=== PATIENT | female | born 1930 | race Two or more races ===

== ENCOUNTER 2016-07-30 18:30 | Inpatient (IN) | payer OTHER ==
[~2016-07-30] VITALS: Ht 160 cm; Wt 86.2 kg
[2016-07-30 20:30] VITALS: BP 143/73
--- NOTE | 2016-07-30 20:30 | NUR ---
MS RN NOTES RECEIVED PT FROM [facility] WITH 2 CREWS. TRANSFERRED TO BED SAFELY. PT IS A/O X 4. VERBALLY RESPONSIVE. NO DISTRESS, NO SOB NOTED. RESPIRATION IS EVEN AND UNLABORED. DENIES ANY PAIN OR DISCOMFORT AT THIS TIME. BODY ASSESSMENT DONE. ALL NEEDS ATTENDED AND MET. KEPT COMFORTABLE. CALL LIGHT WITHIN REACH. SAFETY PRECAUTIONS OBSERVED. WILL CONT TO MONITOR.
--- NOTE | 2016-07-30 20:45 | NUR ---
PT IS STABLE AT THIS TIME, FAMILY AT BEDSIDE. SAFETY PRECAUTIONS OBSERVED. CALL LIGHT WITHIN REACH. WILL CONT TO MONITOR.
--- NOTE | 2016-07-30 21:00 | NUR ---
PLACED A CALL TO [facility] REGARDING MEDICATION LIST. MEDICATION LIST NOT INCLUDED IN THE PAPER WORKS THAT WAS SENT WITH THE PT, SPOKE WITH MAY, PER MAY WILFREDO LEFT ALREADY AND SHE DIDN'T HAVE ACCESS TO THE PT'S MEDICATIONS, BUT WE CAN FAX A CONSENT FROM PT THAT STATING THAT WE CAN ACCESS PT'S INFORMATION. PLACED A CALL TO PATIENT'S FAMILY INSTEAD AND PATIENT'S SON SENT PATIENT'S MEDICATION, DR. ARMANDO NEW AWARE.
--- NOTE | 2016-07-30 21:30 | NUR ---
INSERTED IV ON LEFT HAND 20G X 1 ATTEMPT. WITH GOOD VENOUS RETURN. PT RANDY WELL.
[2016-07-30] MEDS ORDERED: HYDROCODONE/APAP 5/325MG 1 EACH TABLET PO PRN (23:30)
[2016-07-30] MEDS ORDERED: Z GUARD REMEDY 2 OZ OINT TP PRN (23:30)
[2016-07-30] MEDS ORDERED: ZOLPIDEM TARTRATE 5 MG TABLET PO PRN (23:30)
[2016-07-30] MEDS ORDERED: ONDANSETRON HCL/PF 4 MG/2 ML VIAL IVP PRN (23:30)
[2016-07-30] MEDS ORDERED: MAGNESIUM HYDROXIDE 30 ML UDC PO PRN (23:30)
[2016-07-30] MEDS ORDERED: MAG HYDROX/AL HYDROX/SIMETH 30 ML UDC PO PRN (23:30)
[2016-07-30] MEDS ORDERED: ACETAMINOPHEN 325 MG TABLET PO PRN (23:30)
[2016-07-31] MEDS ORDERED: IV SET PRIMARY PUMP SET 1 EA INFUS.SET MC ONE (00:10)
[2016-07-31] MEDS ORDERED: IV 1/2NS 1000 ML 1,000 ML IV ONE (00:10)
[2016-07-31] MEDS: IV 1/2NS 1000 ML 1,000 ML IV PRN ×2 (00:43→15:52)
[2016-07-31] MEDS ORDERED: MORPHINE SULFATE INJ 2 MG/ML DISP.SYRIN ONE (01:52)
[2016-07-31] MEDS: MORPHINE SULFATE INJ 2 MG/ML DISP.SYRIN IV PRN ×4 (02:02→21:08)
[2016-07-31 07:01] LABS: BASOPHILS % (AUTO) 0.6 % (0.0-2.0); EOSINOPHILS # (AUTO) 0.2 /CMM (0.0-0.7); EOSINOPHILS % (AUTO) 3.8 % (0.0-6.0); HEMATOCRIT 32 % (33-45); HEMOGLOBIN 10.9 g/dL (11.5-14.8); LYMPHOCYTES # (AUTO) 1.5 /CMM (0.8-4.8); LYMPHOCYTES % (AUTO) 24.1 % (20.0-44.0); MEAN CORPUSCULAR HEMOGLOBIN 31 PG (26.0-33.0); MEAN CORPUSCULAR HGB CONC 34 g/dl (31.0-36.0); MEAN CORPUSCULAR VOLUME 91 fL (82-100); MONOCYTES # (AUTO) 0.6 /CMM (0.1-1.30); MONOCYTES % (AUTO) 9.1 % (2.0-12.0); NEUTROPHILS # (AUTO) 3.9 /CMM (1.8-8.9); NEUTROPHILS % (AUTO) 62.4 % (43.0-81.0); PLATELET COUNT (AUTO) 203 /CMM (150-450); RDW COEFFICIENT OF VARIATION 14.4 (11.5-15.0); RED BLOOD CELL COUNT(AUTO) 3.47 MIL/uL (4.0-5.2); WHITE BLOOD COUNT (AUTO) 6.2 K/uL (4.3-11.0)
--- NOTE | 2016-07-31 07:20 | NUR ---
MED RECON NURSE INPUT PATIENT'S HOME MEDS, ENDORSED TO JOVANA.
[2016-07-31] MEDS: PANTOPRAZOLE 40 MG TABLET.DR PO SCH (07:30)
--- NOTE | 2016-07-31 07:30 | NUR ---
AM RN NOTE Received patient sleeping comfortably in her bed, no acute distress noted. No SOB noted resp even and non-labored. IV site intact and patent. Bed in low locked position. Will continue to monitor.
--- NOTE | 2016-07-31 07:30 | NUR ---
MS RN NOTES PT STABLE AT THIS TIME. NO DISTRESS, NO SOB NOTED. RESTING COMFORTABLY AT THIS TIME.A/O X4. NO C/O PAIN OR DISCOMFORT AT THIS TIME. IV SITE ON LEFT HAND INTACT AND PATENT. IVF INFUSING WELL. SAFETY PRECAUTIONS OBSERVED. ALL NEEDS ATTENDED. CALL LIGHT WITHIN REACH. SAFETY PRECAUTIONS OBSERVED. WILL ENDORSE TO NEXT SHIFT FOR OMARI.
[2016-07-31 07:31] LABS: CARBON DIOXIDE 29 mmol/L (21-32); CHLORIDE 102 mmol/L (98-107); CREATININE 0.7 mg/dL (0.6-1.3); GLUCOSE 92 mg/dL (74-106); PHOSPHORUS 3.4 mg/dL (2.5-4.9); POTASSIUM 4.2 mmol/L (3.5-5.1); SODIUM SERUM 137 mmol/L (136-145); UREA NITROGEN, BLOOD 12 mg/dL (7-18)
[2016-07-31] MEDS ORDERED: ATEN25TA PO (07:37)
[2016-07-31] MEDS ORDERED: ATOR10TA PO (07:37)
[2016-07-31] MEDS ORDERED: ALEN70TA45 PO (07:37)
[2016-07-31] MEDS ORDERED: CARB-93 PO (07:37)
[2016-07-31] MEDS ORDERED: CALC1CAP21 PO (07:37)
[2016-07-31] MEDS ORDERED: LEVO112T2 PO (07:37)
[2016-07-31] MEDS ORDERED: CITA20TA19 PO (07:37)
[2016-07-31] MEDS ORDERED: HYDR-3326 PO (07:37)
[2016-07-31] MEDS ORDERED: ACET-868 PO (07:37)
[2016-07-31] MEDS ORDERED: CHOL100044 PO (07:37)
[2016-07-31 08:07] VITALS: BP 159/78
[2016-07-31] MEDS ORDERED: HYDROCODONE/APAP 5/325MG 1 EACH TABLET PO PRN (11:00)
[2016-07-31] MEDS ORDERED: ACETAMINOPHEN 325 MG TABLET PO PRN (11:00)
[2016-07-31] MEDS: CARBIDOPA/LEVODOPA 25/100 MG 1 UDTAB PO SCH ×2 (12:52→16:01)
[2016-07-31 16:01] VITALS: BP 131/68
[2016-07-31] MEDS: CALCIUM CARB 600MG /VIT D 1 EACH TABLET PO SCH (16:01)
--- NOTE | 2016-07-31 18:43 | NUR ---
AM RN NOTE Patient lying in her bed and watching TV. NO acute distress noted. Seen and assessed by Cesar (Ortho) this evening with NNO. All needs met and attended in timely manner. Will endorse care to next shift.
--- NOTE | 2016-07-31 19:30 | NUR ---
MS RN NOTES RECEIVED PT IN BED, AWAKE, A/O X 4. PT STABLE AT THIS TIME. NO DISTRESS, NO SOB NOTED. NO C/O PAIN OR DISCOMFORT AT THIS TIME. IV SITE ON LEFT HAND INTACT AND PATENT. IVF INFUSING WELL. SAFETY PRECAUTIONS OBSERVED. ALL NEEDS ATTENDED. CALL LIGHT WITHIN REACH. WILL CONTINUE TO MONITOR.
[2016-07-31 20:00] VITALS: BP 125/52
[2016-07-31] MEDS: ATORVASTATIN 10 MG TABLET PO SCH (21:04)
[2016-07-31 22:00] VITALS: BP 125/52
[2016-08-01] MEDS: MORPHINE SULFATE INJ 2 MG/ML DISP.SYRIN IV PRN ×3 (06:05→20:14)
--- NOTE | 2016-08-01 06:54 | NUR ---
MS RN NOTES PT IN BED, RESTING COMFORTABLY AT THIS TIME AROUSES EASILY. A/O X 4. PT STABLE AT THIS TIME. NO DISTRESS, NO SOB NOTED. NO C/O PAIN OR DISCOMFORT AT THIS TIME. IV SITE ON LEFT HAND INTACT AND PATENT. IVF INFUSING WELL. SAFETY PRECAUTIONS OBSERVED. ALL NEEDS ATTENDED. CALL LIGHT WITHIN REACH. WILL ENDORSE TO NEXT SHIFT FOR OMARI.
[2016-08-01] MEDS ORDERED: LEVOTHYROXINE SODIUM 112 MCG TABLET PO SCH (07:30)
[2016-08-01] MEDS: PANTOPRAZOLE 40 MG TABLET.DR PO SCH (07:59)
[2016-08-01 08:00] VITALS: BP 142/89
[2016-08-01] MEDS: CARBIDOPA/LEVODOPA 25/100 MG 1 UDTAB PO SCH ×3 (08:00→16:29)
[2016-08-01] MEDS: CALCIUM CARB 600MG /VIT D 1 EACH TABLET PO SCH ×2 (08:00→16:29)
[2016-08-01] MEDS ORDERED: ATORVASTATIN 10 MG TABLET PO SCH (09:00)
[2016-08-01] MEDS ORDERED: ATENOLOL 25 MG TABLET PO SCH (09:00)
[2016-08-01] MEDS ORDERED: CHOLECALCIFEROL 1,000 UNIT TABLET (VIT D3) PO SCH (09:00)
[2016-08-01] MEDS ORDERED: CITALOPRAM HYDROBROMIDE 20 MG TABLET PO SCH (09:00)
[2016-08-01] MEDS ORDERED: Morphine Sulfate Inj IV (09:48)
[2016-08-01 16:00] VITALS: BP 131/73
--- NOTE | 2016-08-01 18:30 | NUR ---
AM RN NOTE Pt awake, A/O X3. No acute distress noted. Discharge order given by Dr. Ortega. Received call from Lis ROSARIO) that pt will be going to [facility]. P/U time @ 7:30 PM via ambulance. Called Son (Ching) made aware. Called [facility] spoke with Fe CLERICAL RECEPTIONIST report given on pt. Discharge instructions on medications and teaching given to pt and verbalize understanding. Skin pictures taken and placed in chart. Will endorse to next shift.
--- NOTE | 2016-08-01 18:45 | NUR ---
AM RN NOTE Fe FILAMENT COIL WINDER made aware for F/U appt with Dr. Adams in 1-2 weeks. #[phone].
--- NOTE | 2016-08-01 19:15 | NUR ---
MS RN NOTES RECEIVED PT IN BED, WATCHING TV T THIS TIME. AT BEDSIDE. PT IS A/O X 4. NO DISTRESS, NO SOB NOTED. DENIES ANY PAIN OR DISCOMFORT AT THIS TIME. IV SITE ON LEFT HAND INTACT AND PATENT, NO S/S OF INFILTRATION NOTED. PT FOR DISCHARGE TONIGHT AWAITING FOR TRANSPORTATION. ALL NEEDS ATTENDED AND ET. KEPT COMFORTABLE. CALL LIGHT WITHIN REACH. WILL CONT TO MONITOR.
[2016-08-01 20:00] VITALS: BP 136/67
[2016-08-01] MEDS: ATORVASTATIN 10 MG TABLET PO SCH (21:14)
--- NOTE | 2016-08-01 21:45 | NUR ---
PT IS STABLE AT THIS TIME, NO DISTRESS, NO C/O PAIN OR DISCOMFORT AT THIS TIME. REMAINS A/O X 4. VERBALLY RESPONSIVE. BODY CHECK AND EXIT CARE DONE BY DAY SHIFT RN. ALL DUE MEDICATIONS GIVEN. ALL NEEDS ATTENDED AND MET. IV N LEFT HAND REMOVED, PRESSURE APPLIED, NO BLEEDING AT THIS TIME. ALL BELONGINGS WITH THE PT AND . PICKED UP BY [facility] ( 2 CREWS ) TRANSFERRED PT FROM BED TO [facility] SAFELY. ENDORSED TO [facility] CREW ACCORDINGLY.
[2016-08-04] MEDS ORDERED: ALENDRONATE 70 MG TABLET PO SCH (07:30)
== END 2016-08-01 21:50 | DRG 544 ==
LOC: MEDSG2 20:11
PROVIDERS: ADMIT Internal Medicine; ATTEND Internal Medicine
DX: M80.852A Other osteoporosis with current pathological fracture, left femur, initial encounter for fracture (principal); M48.54XA Collapsed vertebra, not elsewhere classified, thoracic region, initial encounter for fracture; G20 Parkinson's disease; E78.5 Hyperlipidemia, unspecified; E03.9 Hypothyroidism, unspecified; I10 Essential (primary) hypertension; W01.0XXA Fall on same level from slipping, tripping and stumbling without subsequent striking against object, initial encounter; Y93.9 Activity, unspecified; Y92.003 Bedroom of unspecified non-institutional (private) residence as the place of occurrence of the external cause
CPT/HCPCS: 36415; 71010-TC; 80048-TC; 83735-TC; 84100-TC; 85025-TC; 87081-TC; 97001-TC; 97116-TC; 97530-TC; J2270; J3490; Z7610

== ENCOUNTER 2018-12-23 14:02 | Inpatient (IN) | payer MEDICARE, OTHER ==
[~2018-12-23] VITALS: Ht 157.5 cm; Wt 85.7 kg
--- NOTE | 2018-12-23 13:00 | NUR ---
RN NOTES RECEIVED REPORT FROM STEPHANIE COLBERT FROM [facility].
[~2018-12-23 14:02] MED LIST: ACET-868 PO; ALEN70TA6 PO; ATEN25TA PO; ATOR10TA PO; CALC1CAP21 PO; CARB-93 PO; CHOL100044 PO; CITA20TA19 PO; HYDR-3974 PO; LEVO112T2 PO; Morphine Sulfate Inj IV
--- NOTE | 2018-12-23 15:45 | NUR ---
RN ADMITTING NOTES ADMITTED 88 Y/O, FEMALE TO UNIT VIA GURNEY ACCOMPANIED BY AMBULANCE STAFF. A/O X 4. ABLE TO MAKE NEEDS KNOWN. PATIENT ORIENTED TO UNIT, ROOM AND STAFF. ON RA, BREATHING EVEN AND UNLABORED. V/S TAKEN AND RECORDED. REFUSED PHYSICAL ASSESSMENT. ABDOMEN SOFT, NON-DISTENDED WITH POSITIVE BOWEL SOUNDS ON FOUR QUADRANTS. IV ACCESS ON LAC#20, PATENT AND INTACT. IVF TO BE STARTED. SAFETY MEASURES INITIATED, BED PLACED IN LOWEST LOCKED POSITION WITH SIDE RAILS UPX2. CALL LIGHT PLACED WITHIN EASY REACH OF PATIENT. WILL CONTINUE TO MONITOR.
[2018-12-23 16:00] VITALS: BP 117/65
[2018-12-23] MEDS ORDERED: CALC600T12 PO (16:13)
[2018-12-23] MEDS ORDERED: CYAN-51 PO (16:13)
[2018-12-23] MEDS ORDERED: AMAN100T PO (16:13)
[2018-12-23] MEDS ORDERED: LEVO112T2 PO (16:13)
[2018-12-23] MEDS ORDERED: MELA1TAB2 PO (16:13)
[2018-12-23] MEDS ORDERED: ENTA200T PO (16:13)
[2018-12-23] MEDS ORDERED: MAGN400T8 PO (16:13)
[2018-12-23] MEDS ORDERED: ZOLPIDEM TARTRATE 5 MG TABLET PO PRN (16:30)
[2018-12-23] MEDS ORDERED: MAGNESIUM HYDROXIDE 30 ML UDC PO PRN (16:30)
[2018-12-23] MEDS ORDERED: ONDANSETRON HCL/PF 4 MG/2 ML VIAL IVP PRN (16:30)
[2018-12-23] MEDS ORDERED: MORPHINE SULFATE INJ 2 MG/ML DISP.SYRIN IV PRN (16:30)
[2018-12-23] MEDS ORDERED: HYDROCODONE/APAP 5/325MG 1 EACH TABLET PO PRN (16:30)
[2018-12-23] MEDS ORDERED: Z GUARD REMEDY 2 OZ OINT TP PRN (16:30)
[2018-12-23] MEDS ORDERED: HYDROCODONE/APAP 10/325MG 1 EA TABLET PO PRN (16:30)
[2018-12-23] MEDS ORDERED: MAG HYDROX/AL HYDROX/SIMETH 30 ML UDC PO PRN (16:30)
[2018-12-23] MEDS: IV NS 0.9% 1,000 ML IV PRN (16:46)
[2018-12-23] MEDS: ENOXAPARIN SODIUM 40 MG/0.4 ML DISP.SYRIN SQ SCH (17:10)
[2018-12-23] MEDS ORDERED: ESCI5TAB PO (17:18)
--- NOTE | 2018-12-23 18:30 | NUR ---
MS RN CLOSING NOTES PATIENT IN BED RESTING COMFORTABLY IN MODERATE HIGH BACK REST. A/O X4. FAMILY AT BEDSIDE. ON RA, TOLERATING WELL. NO SIGNS OF DISTRESS THROUGHOUT THE SHIFT. IV FLUIDS ON LAC#20 WITH NS @75ML/HR. PATENT AND INTACT. SAFETY PRECAUTION IN PLACE, BED IN LOW LOCKED POSITION WITH SIDE RAILS UP X2. CALL LIGHT WITHIN REACH. WILL ENDORSE TO AEROBICS INSTRUCTOR NURSE FOR OMARI.
--- NOTE | 2018-12-23 19:10 | NUR ---
MS RN NOTES RECEIVED PT IN BED AWAKE AND ABLE TO MAKE NEEDS KNOWN. PT A/O X3. RESPIRATIONS EVEN AND UNLABORED WITH NO S/S OF ACUTE DISTRESS OR SOB NOTED. NO COMPLAINTS OF PAIN AT THIS TIME. PT WITH IV ON LAC #20G PATENT AND INTACT INFUSING NS @75ML/HR. SAFETY MEASURES IN PLACE WITH BED IN LOWEST LOCKED POSITION WITH SIDE RAILS UP X2. CALL LIGHT WITHIN REACH. WILL CONTINUE TO MONITOR.
--- NOTE | 2018-12-23 19:50 | NUR ---
PT ADVISED SHE IS TIRED AND WANTS THE ECHO AND CAROTID EXAMS DONE TOMORROW.
[2018-12-23 20:47] VITALS: BP 118/69
[2018-12-24] VITALS: BP 119/73
[2018-12-24 04:00] VITALS: BP 121/66
[2018-12-24] MEDS: IV NS 0.9% 1,000 ML IV PRN ×2 (06:30→20:41)
[2018-12-24 07:07] LABS: BASOPHILS % (AUTO) 0.6 % (0.0-2.0); EOSINOPHILS % (AUTO) 2.9 % (0.0-6.0); HEMATOCRIT 34 % (33-45); HEMOGLOBIN 11.6 g/dL (11.5-14.8); LYMPHOCYTES # (AUTO) 1.3 /CMM (0.8-4.8); LYMPHOCYTES % (AUTO) 21.3 % (20.0-44.0); MEAN CORPUSCULAR HGB CONC 34 g/dl (31.0-36.0); MEAN CORPUSCULAR VOLUME 96 fL (82-100); MONOCYTES # (AUTO) 0.7 /CMM (0.1-1.30); NEUTROPHILS % (AUTO) 64.2 % (43.0-81.0); PLATELET COUNT (AUTO) 150 /CMM (150-450); RED BLOOD CELL COUNT(AUTO) 3.57 MIL/uL (4.0-5.2); WHITE BLOOD COUNT (AUTO) 6.3 K/uL (4.3-11.0)
--- NOTE | 2018-12-24 07:10 | NUR ---
FAMILY ADVOCATE NOTES PATIENT IN BED ALERT ORIENTED X 3. NO ACUTE DISTRESS NOTED. BREATHING UNLABORED. NO SOB NOTED. IV ACCESS PATENT AND INTACT ,NO REDNESS, NO SWELLING NOTED. RIGHT SHOULDER SLING IN PLACE. SAFETY MEASURES IN PLACE. CALL LIGHT WITHIN REACH. WILL CONTINUE TO MONITOR ACCORDINGLY
[2018-12-24 07:18] LABS: THYROID STIMULATING HORMONE 2.749 uIU/mL (0.358-3.74)
[2018-12-24 07:21] LABS: CALCIUM, SERUM 8.3 mg/dL (8.5-10.1); CREATININE 0.9 mg/dL (0.6-1.3); PHOSPHORUS 3.1 mg/dL (2.5-4.9); POTASSIUM 4.2 mmol/L (3.5-5.1)
--- NOTE | 2018-12-24 07:44 | NUR ---
MORTISING MACHINE OPERATOR NOTES PT IN BED AWAKE AND ABLE TO MAKE NEEDS KNOWN. PT A/O X3. RESPIRATIONS EVEN AND UNLABORED WITH NO S/S OF ACUTE DISTRESS OR SOB NOTED THROUGHOUT SHIFT. PT KEPT CLEAN, DRY AND COMFORTABLE. PT TURNED Q2 HOURS THROUGHOUT SHIFT. NO COMPLAINTS OF PAIN AT THIS TIME. PT WITH IV ON LAC #20G PATENT AND INTACT INFUSING NS @75ML/HR. SAFETY MEASURES IN PLACE WITH BED IN LOWEST LOCKED POSITION WITH SIDE RAILS UP X2. CALL LIGHT WITHIN REACH. WILL ENDORSE TO ONCOMING NURSE FOR OMARI.
[2018-12-24 08:00] VITALS: BP 156/89
--- NOTE | 2018-12-24 09:00 | NUR ---
CREAM BUYER NOTES NOTIFIED DR DAVIS REGARDING HOME MEDICATION RECONCILIATION NEEDS TO BE DONE.
[2018-12-24] MEDS: ACETAMINOPHEN 325 MG TABLET PO PRN ×2 (11:16→18:07)
[2018-12-24 12:00] VITALS: BP 111/64
--- NOTE | 2018-12-24 15:10 | NUR ---
BACK CLOSER NOTES FOLLOWED UP WITH DR BENJAMIN ALSTON REGARDING HOME MEDICATION RECONCILIATION NEEDS TO BE DONE.
[2018-12-24 16:00] VITALS: BP 116/73
--- NOTE | 2018-12-24 18:13 | NUR ---
NEEDLE BAR MOLDER NOTES FOLLOWED UP WITH DR BENJAMIN ALSTON REGARDING HOME MEDICATION RECONCILIATION NEEDS TO BE DONE, SAID OK HE WILL DO IT.
--- NOTE | 2018-12-24 18:52 | NUR ---
Met with patient and sposue at bedside. Patient lives locally with her spouse in a single level home. She has hx of parkinson ds,ambulates with a walker prior to admission and independent with adl's. She owns a cane, walker and shower chair, no homehealth reported. PT yue recommended ARU, discussed with patient and spouse, both agreed ARU at [facility]. Per Steve at [facility]- patient is accepted room#105. Addendum: 12/24/18 at 1852 by EMILY TIJERINA RN Amended: Links added.
--- NOTE | 2018-12-24 19:00 | NUR ---
MARKETING ADMINISTRATOR NOTES PATIENT IN BED ALERT ORIENTED X 3. NO ACUTE DISTRESS NOTED. BREATHING UNLABORED. NO SOB NOTED. IV ACCESS PATENT AND INTACT ,NO REDNESS, NO SWELLING NOTED. RIGHT SHOULDER SLING IN PLACE. PATIENT REFUSED BODY ASSESSMENT AND PHOTO TAKEN DESPITE OF EXPLANATION OF RISK AND BENEFITS.NEEDS ATTENDED AND ANTICIPATED. SAFETY MEASURES IN PLACE. CALL LIGHT WITHIN REACH. WILL ENDORSE TO NIGHT NURSE FOR CONTINUITY OF CARE.
--- NOTE | 2018-12-24 19:28 | NUR ---
RN OPEN NOTES RECEIVED PATIENT AWAKE IN BED. A/OX3. NO SIGNS OF DISTRESS OR DISCOMFORT. BREATHING EVEN AND UNLABORED. ON TELE MONITORING WITH SR 87 NOTED. IV ACCESS IN LAC WITH NS INFUSING, PATENT AND INTACT, NO SIGNS OF REDNESS OR INFILTRATION. PATIENT HAS SLING ON R ARM IN PLACE. STATES PAIN IS 3/10 AND TOLERABLE AT THIS TIME. PATIENT REFUSED TO HAVE PHOTOS TAKEN OF SKIN ASSESSMENT, RISK AND BENEFITS EXPLAINED. BED IN LOW LOCKED POSITION WITH SIDE RAILS X2. CALL LIGHT WITHIN REACH. WILL CONTINUE TO MONITOR.
[2018-12-24 20:00] VITALS: BP 141/73
[2018-12-24] MEDS: ENOXAPARIN SODIUM 40 MG/0.4 ML DISP.SYRIN SQ SCH (20:15)
[2018-12-25 00:09] VITALS: BP 118/70
[2018-12-25] MEDS: ACETAMINOPHEN 325 MG TABLET PO PRN ×2 (02:12→12:48)
[2018-12-25 04:00] VITALS: BP 120/73
[2018-12-25 04:32] VITALS: BP 120/76
--- NOTE | 2018-12-25 06:28 | NUR ---
RN CLOSING NOTES PATIENT RESTING IN BED, EASILY AROUSABLE. A/OX3. NO SIGNS OF DISTRESS OR DISCOMFORT. BREATHING EVEN AND UNLABORED. ON TELE MONITORING WITH SR 83 NOTED. IV ACCESS IN LAC WITH NS INFUSING, PATENT AND INTACT, NO SIGNS OF REDNESS OR INFILTRATION. PATIENT HAS SLING ON R ARM IN PLACE. STATES PAIN TOLERABLE AT THIS TIME. ALL NEEDS MET. NO SIGNIFICANT CHANGES THROUGH THE NIGHT. BED IN LOW LOCKED POSITION WITH SIDE RAILS X2. CALL LIGHT WITHIN REACH. WILL ENDORSE TO AM SHIFT FOR OMARI.
--- NOTE | 2018-12-25 07:15 | NUR ---
MATERIALS PLANNER NOTES PATIENT IN BED ALERT ORIENTED X 3. NO ACUTE DISTRESS NOTED. BREATHING UNLABORED. NO SOB NOTED. IV ACCESS PATENT AND INTACT ,NO REDNESS, NO SWELLING NOTED. RIGHT SHOULDER SLING IN PLACE. SAFETY MEASURES IN PLACE. CALL LIGHT WITHIN REACH. WILL CONTINUE TO MONITOR ACCORDINGLY
[2018-12-25 08:00] VITALS: BP 136/69
[2018-12-25 08:01] LABS: BASOPHILS % (AUTO) 0.8 % (0.0-2.0); EOSINOPHILS % (AUTO) 4.5 % (0.0-6.0); HEMATOCRIT 34 % (33-45); HEMOGLOBIN 11.5 g/dL (11.5-14.8); LYMPHOCYTES # (AUTO) 1.1 /CMM (0.8-4.8); LYMPHOCYTES % (AUTO) 19.3 % (20.0-44.0); MEAN CORPUSCULAR HGB CONC 34 g/dl (31.0-36.0); MEAN CORPUSCULAR VOLUME 94 fL (82-100); MONOCYTES # (AUTO) 0.6 /CMM (0.1-1.30); MONOCYTES % (AUTO) 11.2 % (2.0-12.0); NEUTROPHILS # (AUTO) 3.6 /CMM (1.8-8.9); NEUTROPHILS % (AUTO) 64.2 % (43.0-81.0); PLATELET COUNT (AUTO) 138 /CMM (150-450); RED BLOOD CELL COUNT(AUTO) 3.59 MIL/uL (4.0-5.2); WHITE BLOOD COUNT (AUTO) 5.6 K/uL (4.3-11.0)
[2018-12-25 08:11] LABS: CALCIUM, SERUM 8.7 mg/dL (8.5-10.1); CREATININE 0.8 mg/dL (0.6-1.3); PHOSPHORUS 3.1 mg/dL (2.5-4.9); POTASSIUM 4.3 mmol/L (3.5-5.1)
--- NOTE | 2018-12-25 08:30 | NUR ---
NOVELTY CANDY MAKER NOTES FOLLOWED UP WITH DR BENJAMIN ALSTON REGARDING HOME MEDICATION RECONCILIATION NEEDS TO BE DONE, SAID OK.
--- NOTE | 2018-12-25 12:43 | NUR ---
PLASTER PATTERN CASTER NOTES SEEN AND EVALUATED BY DR BENJAMIN ALSTON WITH NEW ORDERS MADE, NOTED AND CARRIED OUT.
[2018-12-25] MEDS: ENTACAPONE 200 MG TABLET PO SCH ×2 (12:49→17:08)
[2018-12-25] MEDS: CARBIDOPA/LEVODOPA 25/100 MG 1 UDTAB PO SCH ×2 (12:49→17:08)
[2018-12-25] MEDS ORDERED: LEVOTHYROXINE SODIUM 112 MCG TABLET PO SCH (13:00)
--- NOTE | 2018-12-25 17:39 | NUR ---
MS RN NOTES IV ACCESS REMOVED, NO REDNESS, NO SWELLING, NO BLEEDING NOTED.
--- NOTE | 2018-12-25 17:40 | NUR ---
MS RN NOTES PATIENT DISCHARGE TO [facility] WITH STABLE VITAL SIGNS, REPORT GIVEN TO REBECCA BROWN. NO ACUTE DISTRESS NOTED. NO SOB NOTED. RIGHT SHOULDER SLING IN PLACE. NO PAIN AT THIS TIME. REFUSED PHOTO TAKEN. DISCHARGE INSTRUCTIONS GIVEN TO THE PATIENT INCLUDING NON WEIGHT BEARING ON THE RIGHT UPPER EXTREMITY AND MAINTAIN SLING AT ALL TIMES ON THE RIGHT UPPER EXTREMITY AND FOLLOW UP WITH DR ENAMORADO AND PRIMARY MD, VERBALIZED UNDERSTANDING. ALL BELONGINGS ACCOUNTED FOR. PICKED UP VIA AMBULANCE IN A GURNEY ACCOMPANIED BY 2 EMT PERSONNEL AND IN STABLE CONDITION.
[2018-12-26] MEDS ORDERED: AMANTADINE HCL 100 MG CAPSULE PO SCH (09:00)
[2018-12-26] MEDS ORDERED: ATENOLOL 25 MG TABLET PO SCH (09:00)
[2018-12-26] MEDS ORDERED: ATORVASTATIN 10 MG TABLET PO SCH (09:00)
[2018-12-26] MEDS ORDERED: ESCITALOPRAM OXALATE (10 MG) 10 MG TABLET PO SCH (09:00)
[2018-12-26] MEDS ORDERED: CHOLECALCIFEROL (VITAMIN D 3) 400 UNIT TABLET PO SCH (09:00)
[2018-12-26] MEDS ORDERED: CYANOCOBALAMIN 500 MCG TABLET PO SCH (09:00)
[2018-12-26] MEDS ORDERED: MAGNESIUM OXIDE 400 MG TABLET PO SCH (09:00)
[2018-12-26] MEDS ORDERED: CALCIUM CARBONATE 500 MG TAB.CHEW PO SCH (09:00)
== END 2018-12-25 17:37 | DRG 544 ==
LOC: MED 15:08 → TELE 12-24 06:07
DX: M80.021A Age-related osteoporosis with current pathological fracture, right humerus, initial encounter for fracture (principal); W18.30XA Fall on same level, unspecified, initial encounter; E78.5 Hyperlipidemia, unspecified; E03.9 Hypothyroidism, unspecified; I10 Essential (primary) hypertension; G20 Parkinson's disease; Y93.9 Activity, unspecified; Y92.009 Unspecified place in unspecified non-institutional (private) residence as the place of occurrence of the external cause; M80.08XA Age-related osteoporosis with current pathological fracture, vertebra(e), initial encounter for fracture
CPT/HCPCS: 36415; 73030-TC; 80048-TC; 80061-TC; 83735-TC; 84100-TC; 84443-TC; 85025-TC; 87081-TC; 93307-TC; 93880-TC; 97116-TC; 97530-TC; G0378; J1650; J7030